=== PATIENT | female | born 1995 | race Caucasian/White ===

== ENCOUNTER 2021-09-15 06:05 | Day surgery (SDC) | payer OTHER ==
[~2021-09-15] VITALS: Ht 167.6 cm; Wt 68.5 kg
[~2021-09-15 06:05] MED LIST: LIDOCAINE 1% MDV 20ML VIAL SQ PRN; LR 1,000 ML IV ONE; ceFAZolin SOD 2 GM in IV 1 EA IV ONE
[2021-09-15 06:39] LABS: HEMATOCRIT 40.7 % (36.0-47.0); HEMOGLOBIN 13.5 g/dl (12.0-15.5); MEAN CORPUSCULAR HEMOGLOBIN 29.6 pg (27.0-33.0); MEAN CORPUSCULAR HGB CONC 33.2 g/dl (32.0-36.5); MEAN CORPUSCULAR VOLUME 89.3 fl (80.0-96.0); PLATELET COUNT, AUTOMATED 199 10^3/uL (150-450); RED BLOOD COUNT 4.56 10^6/uL (4.00-5.40); WHITE BLOOD COUNT 5.6 10^3/uL (4.0-10.0)
[2021-09-15] MEDS ORDERED: LIDOCAINE 1% MDV 20ML VIAL As Ordered ONE (07:15)
[2021-09-15] MEDS ORDERED: ceFAZolin 1GM VIAL (J0690 PER 500MG) As Ordered ONE (07:15)
[2021-09-15] MEDS ORDERED: EPINEPHrine INJ 1 MG/ML 1ML AMP As Ordered ONE (07:16)
[2021-09-15] MEDS ORDERED: propofoL 200 MG/20 ML VIAL As Ordered ONE (07:26)
[2021-09-15] MEDS ORDERED: ONDANSETRON 4MG/2ML VIAL As Ordered ONE (07:26)
[2021-09-15] MEDS ORDERED: ROCURONIUM BROMIDE 50 MG/5 ML VIAL As Ordered ONE (07:26)
[2021-09-15] MEDS ORDERED: LIDOCAINE 2% 100MG/5ML SDV (FOR ANES.) As Ordered ONE (07:26)
[2021-09-15] MEDS ORDERED: fentaNYL 250 MCG/5 ML INJECTION (J3010) As Ordered ONE (07:27)
[2021-09-15] MEDS ORDERED: MIDAZOLAM INJ 2MG/2ML VIAL (J2250 PER 1MG) As Ordered ONE (07:28)
[2021-09-15] MEDS ORDERED: dexameTHASONE 4 MG/ML 1ML VIAL (J1100 PER 1MG) As Ordered ONE ×2 (07:30→07:31)
[2021-09-15] MEDS ORDERED: GLYCOPYRROLATE INJ 0.2 MG/ML 2 ML VIAL As Ordered ONE (08:14)
[2021-09-15] MEDS ORDERED: LACRILUBE (AKWA TEARS) OPHTH OINT 3.5 GM As Ordered ONE (08:22)
[2021-09-15] MEDS ORDERED: SUGAMMADEX SODIUM 500 MG/5 ML VIAL (BRIDION) As Ordered ONE (08:28)
[2021-09-15] MEDS ORDERED: METOCLOPRAMIDE INJ 10MG/2ML VIAL (J2765 PER 1) As Ordered ONE (08:28)
[2021-09-15] MEDS ORDERED: ACETAMINOPHEN 1000MG 100ML IV BTL (OFIRMEV) (J0131 PER 10MG) As Ordered ONE (08:28)
[2021-09-15] MEDS ORDERED: PHENYLephrine 500MCG 5ML (100MCG/ML) SYRINGE As Ordered ONE (08:29)
[2021-09-15] MEDS ORDERED: GENTAMICIN SULF 80MG/2ML VIAL As Ordered ONE (08:34)
--- NOTE | 2021-09-15 09:12 | POST-OPPD ---
Postoperative Procedure Note Date Of Procedure: Sep 15, 2021 PREOPERATIVE DIAGNOSIS: Left buttock symptomatic contracted scar POSTOPERATIVE DIAGNOSIS: same PROCEDURE: Left buttock scar revision with fat transfer, donor site back. SURGEON: Dr Rick ANESTHESIA: General ESTIMATED BLOOD LOSS: 10 cc FINDINGS: indented contracted scar left buttock upper outer quadrant 4x4 cm SPECIMENS: none COMPLICATIONS: none REPLACED: none DRAINS: none POSTOPERATIVE CONDITION: stable AP RICK DO Sep 15, 2021 09:12
--- NOTE | 2021-09-15 09:13 | ROOPDOC ---
[facility] Report Of Operation Report of Operation DATE OF PROCEDURE: 09/15/21 PREOPERATIVE DIAGNOSIS: Left buttock symptomatic contracted scar POSTOPERATIVE DIAGNOSIS: same PROCEDURE: Left buttock scar revision with fat transfer, donor site back. SURGEON: Dr Rick ANESTHESIA: General ESTIMATED BLOOD LOSS: 10 cc FINDINGS: indented contracted scar left buttock upper outer quadrant 4x4 cm SPECIMENS: none COMPLICATIONS: none REPLACED: none DRAINS: none POSTOPERATIVE CONDITION: stable DESCRIPTION OF PROCEDURE: This is a 26-year-old female who has symptomatic c ontracted scar plantar outer superior part of the left buttock status post injections previously. Patient had fat regression in that area which is visible through her clothing and tender to touch. Patient wishes to have it corrected. Best approach for her was chosen to be releasing of scar contraction and filling the defect with fat graft. We planning to use her back as a donor for the graft. Risk, benefits, and alternatives of the procedure discussed with patient in detail. She is ready to proceed. She was marked in the upright position in the holding area today. Informed consent was obtained. She was brought into the operating room, placed in supine position, general anesthesia is induced. She was then placed in a prone position with all bony prominences protected. She was prepped and draped in the usual sterile fashion. The scar measures 4 x 4 cm. We started our procedure by making 2 stab incision 1 and upper and one on the lower back. Tumescent solution was infiltrated throughout her upper and lower back total 700 cc. Suction assisted lipectomy was then carried out using 3 mm cannulas. All liposuction infiltrate was collected on 2 enclosed container on the sterile table. It was using vibrating device. Also fat was washed with gentamicin solution irrigation. After the fat preparation was completed we end up having 68 cc of good fatty infiltrate. We have used the lower stab incision to introduce vasa liposuction cannula 2.5 mm with 3 rings. It was used to release the contracture underneath the scar area which was successfully done in 1 minute. Then we have infiltrated 68 cc of fat using blunt cannulas into the area which helped us to achieve smooth flow which was symmetrical to the right side. Small incisions are closed with int errupted 4-0 Monocryl sutures. Patient is extubated in the supine position and abdominal binder was placed. She was then turned in the left semifowler position to relieve the pressure of the buttock. She was transferred to recovery room in stable condition. AP RICK DO Sep 15, 2021 09:13
[2021-09-15] MEDS ORDERED: TRAM50TA2 PO (09:16)
[2021-09-15] MEDS ORDERED: LR 1,000 ML IV SCH (09:30)
[2021-09-15] MEDS ORDERED: oxyCODONE 5MG TAB PO PRN (09:30)
[2021-09-15] MEDS ORDERED: ONDANSETRON 4MG/2ML VIAL IV PRN (09:30)
[2021-09-15] MEDS ORDERED: fentaNYL 100 MCG/2 ML INJECTION (J3010) IV PRN (09:30)
[2021-09-15] MEDS ORDERED: ONDANSETRON 4 MG ORAL DISINTEGRATING TAB SL ONE (11:25)
[2021-09-15 12:09] VITALS: BP 111/68
== END 2021-09-15 12:23 | disposition home or self-care (01) ==
LOC: M SDC 06:05
PROVIDERS: ATTEND Plastic Surgery Surgery of the Hand
DX: L90.5 Scar conditions and fibrosis of skin (principal); Z88.8 Allergy status to other drugs, medicaments and biological substances
CPT/HCPCS: 13101; 15771; 36415; 81025; 85027; J0131; J0171; J0690; J1580; J2250; J2370; J2405; J2765; J3010; Q0162